=== PATIENT | male | born 1950 | race Two or more races ===

== ENCOUNTER 2025-02-28 14:28 | Inpatient (IN) | payer MEDICARE, OTHER ==
[~2025-02-28] VITALS: Ht 160 cm; Wt 63.5 kg
[2025-02-28] MEDS ORDERED: DEXT15SY3 PO (15:40)
[2025-02-28] MEDS ORDERED: BISM262O28 PO (15:40)
[2025-02-28] MEDS ORDERED: HYDR50CA PO (15:40)
[2025-02-28] MEDS ORDERED: ACET325T53 PO (15:40)
[2025-02-28] MEDS ORDERED: IBUP-1955 PO (15:40)
[2025-02-28] MEDS ORDERED: MAGN400O6 PO (15:40)
[2025-02-28] MEDS ORDERED: MAG30ORA PO (15:40)
[2025-02-28] MEDS ORDERED: LORA2TAB95 PO (15:40)
[2025-02-28] MEDS ORDERED: DIPH50CA37 PO (15:40)
[2025-02-28 15:43] LABS: ACETAMINOPHEN < 2.0 ug/mL (10-30); ETHANOL < 3 MG/DL (0-10)
[2025-02-28 19:01] LABS: *BILIRUBIN,URIN NEGATIVE (NEGATIVE); *BLOOD, URINE NEGATIVE (NEGATIVE); *CLARITY,URINE CLEAR (CLEAR); *COLOR,URINE YELLOW (YELLOW); *KETONES,URINE NEGATIVE (NEGATIVE); *PROTEIN,URINE NEGATIVE (NEGATIVE); *UROBILINOGEN,URINE 0.2 E.U./dl (NORMAL); LEUKOCYTE ESTERASE ,URINE NEGATIVE (NEGATIVE); NITRITE, URINE NEGATIVE (NEGATIVE); PH,URINE 5.5 (5.0-8.0); UGLUCOSE NEGATIVE (NEGATIVE)
[2025-02-28] MEDS ORDERED: ACETAMINOPHEN 325 MG TABLET PO PRN (21:30)
[2025-02-28] MEDS ORDERED: MAGNESIUM HYDROXIDE 30 ML LIQUID UDC PO PRN (21:30)
[2025-02-28] MEDS ORDERED: MAG HYDROX/AL HYDROX/SIMETH 30 ML LIQUID UDC PO PRN (21:30)
[2025-02-28] MEDS ORDERED: QUETIAPINE FUMARATE 100 MG TABLET PO PRN (21:30)
[2025-02-28] MEDS ORDERED: ZOLPIDEM 5 MG TABLET PO PRN ×2 (21:30)
[2025-02-28] MEDS: BLOOD SUGAR DIAGNOSTIC 1 EACH STRIP VI ONE (21:55)
[2025-03-01 08:46] VITALS: BP 142/78; TEMP 98.5; O2SAT 98
[2025-03-01 16:22] VITALS: BP 138/71; TEMP 98.5; O2SAT 98
[2025-03-01] MEDS ORDERED: risperiDONE 1 MG TABLET PO PRN (18:00)
[2025-03-01 20:00] VITALS: BP 136/55; TEMP 98.4; O2SAT 97
[2025-03-01] MEDS: risperiDONE 0.5 MG TABLET PO SCH (21:00)
[2025-03-01] MEDS: DIVALPROEX 125 MG TABLET.DR PO SCH (21:00)
[2025-03-02 08:31] VITALS: BP 122/80; TEMP 98; O2SAT 94
[2025-03-02 15:17] VITALS: BP 154/73; TEMP 98; O2SAT 98
[2025-03-02 20:00] VITALS: BP 136/60; TEMP 98.4; O2SAT 95
[2025-03-03 07:46] VITALS: BP 128/70; TEMP 98; O2SAT 92
[2025-03-03 08:00] LABS: ALANINE AMINOTRANSFERASE 17 U/L (16-63); ALKALINE PHOSPHATASE 99 U/L (50-136); ASPARTATE AMINOTRANSFERASE 11 U/L (15-37); BILIRUBIN,TOTAL 0.5 mg/dL (0.2-1.0); CALCIUM 8.9 mg/dL (8.5-10.1); CARBON DIOXIDE 29 mmol/L (21-32); CHLORIDE 105 mmol/L (98-107); CHOLESTEROL 185 mg/dL (<200); CREATININE 0.8 mg/dL (0.6-1.3); GLUCOSE 102 mg/dL (74-106); HDL CHOLESTEROL 45 mg/dL (40-60); POTASSIUM 4.4 mmol/L (3.5-5.1); SODIUM SERUM 141 mmol/L (136-145); TOTAL PROTEIN, SERUM 7.4 g/dL (6.4-8.2); TRIGLYCERIDES 174 MG/DL (30-150); UREA NITROGEN, BLOOD 17 mg/dL (7-18)
[2025-03-03 15:49] VITALS: BP 141/75; TEMP 98; O2SAT 96
[2025-03-03 19:40] VITALS: BP 114/62; TEMP 98.2; O2SAT 95
[2025-03-04 08:41] VITALS: BP 134/54; TEMP 98; O2SAT 96
[2025-03-04 15:14] VITALS: BP 144/67; TEMP 98; O2SAT 98
[2025-03-04 19:45] VITALS: BP 152/67; TEMP 98; O2SAT 98
[2025-03-05 08:30] VITALS: BP 134/79; TEMP 98.5; O2SAT 97
[2025-03-05 16:27] VITALS: BP 145/67; TEMP 98.1; O2SAT 99
[2025-03-06 08:22] VITALS: BP 114/57; TEMP 98.1
[2025-03-06 16:30] VITALS: BP 129/67; TEMP 98.1; O2SAT 99
[2025-03-06 17:15] VITALS: BP 129/78; TEMP 98.5; O2SAT 98
[2025-03-06 20:09] VITALS: BP 128/61; TEMP 98; O2SAT 98
[2025-03-06] MEDS: risperiDONE 1 MG TABLET PO SCH (20:10)
[2025-03-06] MEDS ORDERED: risperiDONE 0.5 MG TABLET PO SCH (21:00)
[2025-03-07 08:28] VITALS: BP 151/85; TEMP 98; O2SAT 97
[2025-03-07] MEDS ORDERED: DIVALPROEX 125 MG TABLET.DR PO SCH (14:00)
[2025-03-07] MEDS: DIVALPROEX 250 MG TABLET.DR PO SCH (15:02)
[2025-03-07 16:57] VITALS: BP 128/71; TEMP 98.3; O2SAT 98
[2025-03-07 20:10] VITALS: BP 140/62; TEMP 97.9; O2SAT 100
[2025-03-08 08:20] VITALS: BP 135/81; TEMP 98.2; O2SAT 100
[2025-03-08 15:20] VITALS: BP 127/60; TEMP 98; O2SAT 96
[2025-03-08 20:00] VITALS: BP 149/66; TEMP 98; O2SAT 100
[2025-03-09 07:54] VITALS: BP 148/77; TEMP 98; O2SAT 98
[2025-03-09 15:53] VITALS: BP 130/62; TEMP 98; O2SAT 99
[2025-03-09 20:00] VITALS: BP 138/63; TEMP 97.9; O2SAT 98
[2025-03-10 08:02] VITALS: BP 129/70; TEMP 98; O2SAT 96
== END 2025-03-10 14:15 | DRG 885 ==
LOC: ER 14:28 → GPS 20:45
PROVIDERS: ADMIT Psychiatry & Neurology Psychiatry
DX: F39 Unspecified mood [affective] disorder (principal); F20.9 Schizophrenia, unspecified; E78.5 Hyperlipidemia, unspecified; I10 Essential (primary) hypertension; Z91.148 Patient's other noncompliance with medication regimen for other reason; Z79.899 Other long term (current) drug therapy
CPT/HCPCS: 36415; 80164; A4663; G0480; J3490